=== PATIENT | female | born 1965 | race Caucasian/White ===

== ENCOUNTER 2018-04-06 18:38 | Emergency (ER) | payer OTHER ==
--- NOTE | 2018-04-06 19:52 | EDM.PDOC ---
<Liset Andrade - Last Filed: 04/06/18 19:52> ED HPI GENERAL MEDICAL PROBLEM - General Chief Complaint: Respiratory Problem Stated Complaint: COUGH/SOB/VOMITING FROM BLEACH Time Seen by Provider: 04/06/18 19:52 Source of Information: Reports: Patient History Limitations: Reports: No Limitations - History of Present Illness INITIAL COMMENTS - FREE TEXT/NARRATIVE: Patient presents today for complaints of difficulty breathing after cleaning with bleach and snobowl. Chest Pain Score (Numeric/FACES): 6 - Related Data Allergies Allergy/AdvReac Type Severity Reaction Status Date / Time No Known Allergies Allergy Verified 04/06/18 19:12 Home Meds: Home Meds NK [No Known Home Meds] 04/06/18 [History] Past Medical History [employer] History: Reports: - Infectious Disease History Infectious Disease History: Reports: Chicken Pox - Past Surgical History HEENT Surgical History: Reports: Tonsillectomy Female Surgical History: Reports: Breast Implant Neurological Surgical History: Reports: Other (See Below) Other Neurological Surgeries/Procedures: lower back plate and screws Social & Family History - Family History Family Medical History: Noncontributory - Tobacco Use Smoking Status *Q: Current Every Day Smoker Years of Tobacco use: 12 Packs/Tins Daily: 0.7 - Caffeine Use Caffeine Use: Reports: Coffee - Recreational Drug Use Recreational Drug Use: No Course - Vital Signs Last Recorded V/S: Last Vital Signs Temp 98.1 F 04/06/18 19:13 Pulse 70 04/06/18 19:13 Resp 18 04/06/18 19:13 BP 139/87 04/06/18 19:13 Pulse Ox 96 04/06/18 19:13 Departure - Departure Disposition: Home, Self-Care 01 Clinical Impression: Chemical exposure - Discharge Information Referrals: PCP,None [Primary Care Provider] - Forms: ED Department Discharge Additional Instructions: Continue breathing pressure, Please followup with your primary care provider in 3-5 days if not better, please call return to the emergency department with worsening of symptoms. <Neftaly Ba - Last Filed: 04/06/18 20:05> ED HPI GENERAL MEDICAL PROBLEM - General Source of Information: Reports: Patient History Limitations: Reports: No Limitations - History of Present Illness INITIAL COMMENTS - FREE TEXT/NARRATIVE: Took over care the patient is a 52-year-old female presents emergency department today after exposure to to cleaning solutions one is bleach in the other is a toilet bowl sack cleaner of snobowl, did contact poison control recommended symptom Medicare and exposure to fresh air and time. Patient states her breathing has improved she had exposure about 2 hours prior very difficult to breathe at that time but things are improving she does have a cough no chest pain, sputum production clear mucus Past Medical History - Past Health History Medical/Surgical History: Denies Medical/Surgical History Social & Family History - Tobacco Use Smoking Status *Q: Current Every Day Smoker ED ROS GENERAL - Review of Systems Review Of Systems: See Below Constitutional: Reports: No Symptoms Respiratory: Reports: Shortness of Breath, Cough, Sputum Cardiovascular: Denies: Chest Pain ED EXAM, GENERAL - Physical Exam Exam: See Below Exam Limited By: No Limitations General Appearance: Alert, WD/WN, No Apparent Distress Neck: Normal Inspection, Supple, Non-Tender, Full Range of Motion Respiratory/Chest: No Respiratory Distress, Lungs Clear, Normal Breath Sounds, No Accessory Muscle Use Cardiovascular: Regular Rate, Rhythm, No Murmur Departure - Departure Time of Disposition: 20:04 Condition: Good - Assessment/Plan Plan: Assessment Acuity = acute Site and laterality = pulmonary chemical exposure to combination of bleach and toilet bowl sack cleaner Etiology = noxious gas Manifestations = cough, sputum production Location of injury = Home Lab values = none Plan Did offer patient symptomatic care with a bronchodilator she declined, would prefer to do watchful waiting she will return to the emergency department with worsening of symptoms This note was dictated using tydy voice recognition software please call with any questions on syntax or grammar.
== END 2018-04-06 20:11 | disposition home or self-care (01) ==
LOC: JP.ED 18:38
DX: Z77.098 Contact with and (suspected) exposure to other hazardous, chiefly nonmedicinal, chemicals (principal); F17.210 Nicotine dependence, cigarettes, uncomplicated
CPT/HCPCS: 99283